=== PATIENT | female | born 1945 | race Hispanic/Latino ===

== ENCOUNTER 2019-12-21 06:03 | Day surgery (SDC) | payer OTHER ==
[2019-12-18 14:24] LABS: BASOPHILS % (AUTO) 0.4 % (0.0-5.0); EOSINOPHILS % (AUTO) 0.9 % (0.0-8.0); HEMATOCRIT 31.7 % (36-48); LYMPHOCYTES % (AUTO) 21.4 % (21.0-51.0); MEAN CORPUSCULAR HEMOGLOBIN 31.5 pg (27.0-33.0); MEAN CORPUSCULAR HGB CONC 33.4 g/dL (32.0-36.0); MEAN CORPUSCULAR VOLUME 94.3 fL (79-99); MONOCYTES % (AUTO) 8.4 % (3.0-13.0); NEUTROPHILS % (AUTO) 68.5 % (40.0-77.0); PLATELET COUNT (AUTO) 241 K/uL (130-400); RED BLOOD CELL COUNT(AUTO) 3.36 MIL/uL (4.00-5.50); RED CELL DISTRIBUTION WIDTH 13.2 % (11.0-15.5); WHITE BLOOD COUNT (AUTO) 6.7 K/uL (4.8-10.8)
[2019-12-18 14:38] LABS: INR 0.97 (0.85-1.15); PARTIAL THROMBOPLASTIN TIME 26.8 SEC (26.3-35.5); PROTHROMBIN TIME 10.5 SEC (9.6-11.6)
[2019-12-18 14:39] LABS: APPEARANCE,URINE Clear (CLEAR); BILIRUBIN,URINE Negative (NEGATIVE); COLOR,URINE Yellow (YELLOW); GLUCOSE, URINE (UA) Negative (NEGATIVE); KETONES,URINE Negative (NEGATIVE); LEUKOCYTE ESTERASE ,URINE Trace (NEGATIVE); NITRATE,URINE Negative (NEGATIVE); OCCULT BLOOD,URINE Negative (NEGATIVE); PROTEIN,URINE Negative (NEGATIVE); UROBILINOGEN,URINE 0.2 mg/dL (0.2-1.0)
[2019-12-18 14:40] LABS: CREATININE 0.9 mg/dL (0.5-1.5)
[2019-12-18 15:12] LABS: BACTERIA,URINE Few /HPF (None Seen); MUCUS,URINE Rare LPF (None Seen); RBC,URINE 0-1 /HPF (0-1); SQUAMOUS EPITHELIAL CELL,UR Few /HPF (0-2)
[2019-12-18 15:54] VITALS: BP 128/70
[2019-12-21] VITALS (10 sets, daily range): BP systolic 131–159; BP diastolic 53–69
[~2019-12-21] VITALS: Ht 157.5 cm; Wt 74.0 kg
[~2019-12-21 06:03] MED LIST: AMIT10TA6 PO; ATOR20TA65 PO; CITA-107 PO; DEXL60CA3 PO; DIPH25CA99 PO; LINA290C PO; LISI-613 PO; METF-446 PO; MIRA50TA PO; NITR0.4T50 SL; SITA100T12 PO; SUCR1TAB2 PO; TELM40TA8 PO; VITA400T9 PO
[2019-12-21] MEDS ORDERED: VITA1CAP PO (07:15)
[2019-12-21] MEDS ORDERED: INDA1.255 PO (07:15)
[2019-12-21] MEDS ORDERED: NABU500T3 PO (07:15)
[2019-12-21] MEDS ORDERED: SODIUM BICARB 50MEQ 50ML VIAL ONE (07:31)
[2019-12-21] MEDS ORDERED: IOHEXOL-350 50ML VIAL IV ONE (07:31)
[2019-12-21] MEDS ORDERED: NITROGLYCERIN 2 MG/VIAL VIAL IV ONE (07:31)
[2019-12-21] MEDS ORDERED: HEPARIN SODIUM 1000UNIT/ML 10ML VIAL ONE (07:31)
[2019-12-21] MEDS ORDERED: LIDOCAINE HCL 2% 20ML ONE (07:32)
[2019-12-21] MEDS ORDERED: IOHEXOL 350 MG/ML 100ML INFUS..BTL IV ONE (07:33)
[2019-12-21] MEDS ORDERED: SODIUM CHLORIDE 0.9% 1000ML 1,000 ML IV SCH (08:00)
[2019-12-21] MEDS ORDERED: MIDAZOLAM HCL 1 MG/ML 2ML VIAL ONE (08:20)
[2019-12-21] MEDS ORDERED: FENTANYL CITRATE PF 50 MCG/1 ML 2ML VIAL ONE (08:20)
[2019-12-21] MEDS ORDERED: ADENOSINE 90MG/30ML VIAL IV ONE (08:41)
[2019-12-21] MEDS ORDERED: ENALAPRILAT DIHYDRATE 1.25 MG/ML 2ML VIAL IVP ONE ×2 (09:50→09:59)
== END 2019-12-21 14:30 | disposition home or self-care (01) ==
LOC: DAH 06:03
PROVIDERS: ATTEND Internal Medicine Cardiovascular Disease
DX: I27.20 Pulmonary hypertension, unspecified (principal); I25.119 Atherosclerotic heart disease of native coronary artery with unspecified angina pectoris; I11.0 Hypertensive heart disease with heart failure; I50.42 Chronic combined systolic (congestive) and diastolic (congestive) heart failure; E11.9 Type 2 diabetes mellitus without complications; E78.5 Hyperlipidemia, unspecified; F32.9 Major depressive disorder, single episode, unspecified; Z90.49 Acquired absence of other specified parts of digestive tract; Z90.710 Acquired absence of both cervix and uterus; Z83.3 Family history of diabetes mellitus; Z82.49 Family history of ischemic heart disease and other diseases of the circulatory system; Z79.84 Long term (current) use of oral hypoglycemic drugs; Z79.899 Other long term (current) drug therapy; Z79.01 Long term (current) use of anticoagulants
CPT/HCPCS: 36415; 71045; 80048; 81001; 82948 ×2; 85025; 85610; 85730; 93005; 93460; A4215; A4216; A4221; A4222; A4223 ×3; A4606; A4663; C1760; C1769; C1887; C1894 ×3; J0153; J1644 ×2; J2250; J3010; J3490 ×5; J7030; Q9965 ×2; Q9967 ×2; 99156; 99157